=== PATIENT | female | born 1995 | race Caucasian/White ===

== ENCOUNTER 2017-06-06 09:40 | Inpatient (IN) | payer OTHER ==
[~2017-06-06] VITALS: Ht 165.1 cm; Wt 86.2 kg
[~2017-06-06 09:40] MED LIST: PREN1TAB89 PO
[2017-06-06] MEDS ORDERED: RINGERS SOLUTION,LACTATED 1,000 ML IV ONE ×2 (10:09→10:21)
[2017-06-06] MEDS ORDERED: CITRIC ACID/SODIUM CITRATE 30 ML SOLUTION UDCUP PO ONE (10:30)
[2017-06-06] MEDS ORDERED: METOCLOPRAMIDE HCL 5 MG/ML 2 ML VIAL IVP ONE (10:30)
[2017-06-06 10:31] VITALS: BP 117/67
[2017-06-06] MEDS ORDERED: FentaNYL CITRATE-PF 100 MCG/2 ML VIAL ONE (10:50)
[2017-06-06] MEDS ORDERED: MORPHINE SULFATE/PF 0.5 MG/ML 10 ML AMP ONE (10:50)
[2017-06-06] MEDS ORDERED: MIDAZOLAM HCL 2 MG/2 ML VIAL ONE (10:51)
[2017-06-06 11:09] LABS: BASOPHILS % (AUTO) 0.3 % (0.0-2.0); EOSINOPHILS % (AUTO) 1.6 % (1.0-6.0); HEMATOCRIT 30.8 % (36-46); HEMOGLOBIN 10.6 g/dL (12.0-16.0); LYMPHOCYTES # (AUTO) 1.5 K/uL (1.0-4.8); LYMPHOCYTES % (AUTO) 12.8 % (22.0-44.0); MEAN CORPUSCULAR HEMOGLOBIN 30.2 pg (26.0-34.0); MEAN CORPUSCULAR HGB CONC 34.4 G/dL (31.0-37.0); MEAN CORPUSCULAR VOLUME 88 fL (80-100); MONOCYTES # (AUTO) 0.7 K/uL (0.1-1.0); MONOCYTES % (AUTO) 6.2 % (2.0-9.0); NEUTROPHILS % (AUTO) 79.1 % (40.0-70.0); RED BLOOD CELL COUNT(AUTO) 3.51 MIL/uL (4.00-5.20); RED CELL DISTRIBUTION WIDTH 13.4 % (11.5-14.5); WHITE BLOOD COUNT (AUTO) 11.4 K/uL (4.5-11.0)
[2017-06-06 11:54] LABS: GLUCOSE,POINT OF CARE 76 MG/DL (70-110)
[2017-06-06] MEDS ORDERED: ONDANSETRON HCL 4 MG/2 ML VIAL IVP PRN ×2 (13:45)
[2017-06-06] MEDS ORDERED: DiphenhydrAMINE HCL 50 MG/ML VIAL IVP PRN ×2 (13:45)
[2017-06-06] MEDS ORDERED: FentaNYL CITRATE-PF 100 MCG/2 ML VIAL IVP PRN ×2 (13:45)
[2017-06-06] MEDS ORDERED: MORPHINE SULFATE 2 MG/ML SYRINGE IVP PRN (13:45)
[2017-06-06] MEDS ORDERED: OXYGEN THERAPY IH SCH ×2 (13:45)
[2017-06-06] MEDS ORDERED: MORPHINE SULFATE 4 MG/ML SYRINGE IVP PRN (13:45)
[2017-06-06] MEDS ORDERED: ACETAMINOPHEN/CODEINE 300-30 MG TABLET PO PRN (14:15)
[2017-06-06] MEDS: DEXTROSE 5%-0.45% SODIUM CHL 1,000 ML IV SCH ×2 (16:00→20:03)
[2017-06-06] MEDS ORDERED: DEXTROSE 5%-0.45% SODIUM CHL 1,000 ML IV ONE ×2 (16:36→23:53)
[2017-06-06] MEDS: NALBUPHINE HCL 10 MG/ML VIAL IVP SCH (18:32)
[2017-06-06] MEDS: KETOROLAC TROMETHAMINE 30 MG/ML VIAL IVP SCH (20:02)
[2017-06-06] MEDS: LANOLIN 7 GM OINTMENT TP PRN (20:07)
[2017-06-07] MEDS: NALBUPHINE HCL 10 MG/ML VIAL IVP SCH ×2 (00:05→05:35)
[2017-06-07] MEDS: DEXTROSE 5%-0.45% SODIUM CHL 1,000 ML IV SCH ×2 (00:06→04:06)
[2017-06-07] MEDS: KETOROLAC TROMETHAMINE 30 MG/ML VIAL IVP SCH ×2 (01:41→08:05)
[2017-06-07] MEDS ORDERED: KETOROLAC TROMETHAMINE 60 MG/2 ML VIAL IM ONE (01:57)
[2017-06-07] MEDS ORDERED: ONDANSETRON HCL 4 MG/2 ML VIAL IVP ONE (01:57)
[2017-06-07] MEDS ORDERED: EPHEDrine SULFATE 50 MG/ML VIAL IM ONE (01:57)
[2017-06-07] MEDS ORDERED: DEXAMETHASONE SOD PHOS 4 MG/ML VIAL IVP ONE (01:57)
[2017-06-07] MEDS ORDERED: OXYTOCIN 10 UNITS/ML VIAL IM ONE (01:57)
[2017-06-07] MEDS ORDERED: DEXTROSE 5%-0.45% SODIUM CHL 1,000 ML IV ONE (04:03)
[2017-06-07] MEDS ORDERED: IBUPROFEN 800 MG TABLET PO SCH (07:00)
[2017-06-07 09:22] LABS: BASOPHILS % (AUTO) 0.3 % (0.0-2.0); EOSINOPHILS % (AUTO) 0.2 % (1.0-6.0); HEMATOCRIT 27.4 % (36-46); HEMOGLOBIN 9.2 g/dL (12.0-16.0); LYMPHOCYTES # (AUTO) 2.1 K/uL (1.0-4.8); LYMPHOCYTES % (AUTO) 13.2 % (22.0-44.0); MEAN CORPUSCULAR HEMOGLOBIN 30.1 pg (26.0-34.0); MEAN CORPUSCULAR HGB CONC 33.8 G/dL (31.0-37.0); MEAN CORPUSCULAR VOLUME 89 fL (80-100); MONOCYTES % (AUTO) 6.6 % (2.0-9.0); NEUTROPHILS # (AUTO) 12.6 K/uL (1.8-7.7); NEUTROPHILS % (AUTO) 79.7 % (40.0-70.0); RED BLOOD CELL COUNT(AUTO) 3.07 MIL/uL (4.00-5.20); RED CELL DISTRIBUTION WIDTH 13.7 % (11.5-14.5); WHITE BLOOD COUNT (AUTO) 15.8 K/uL (4.5-11.0)
[2017-06-07] MEDS: MAGNESIUM HYDROXIDE SUSPENSION 30 ML UDCUP PO SCH ×2 (09:32→21:06)
[2017-06-07] MEDS: IBUPROFEN 800 MG TABLET PO SCH ×3 (12:30→23:57)
[2017-06-07] MEDS: ACETAMINOPHEN/CODEINE 300-30 MG TABLET PO PRN (21:13)
[2017-06-08] MEDS: IBUPROFEN 800 MG TABLET PO SCH ×4 (06:03→23:45)
[2017-06-08] MEDS: MAGNESIUM HYDROXIDE SUSPENSION 30 ML UDCUP PO SCH ×2 (09:00→21:00)
[2017-06-08] MEDS: LANOLIN 7 GM OINTMENT TP PRN (17:05)
[2017-06-08] MEDS: ACETAMINOPHEN/CODEINE 300-30 MG TABLET PO PRN (19:57)
[2017-06-09] MEDS: ACETAMINOPHEN/CODEINE 300-30 MG TABLET PO PRN (04:24)
[2017-06-09] MEDS: IBUPROFEN 800 MG TABLET PO SCH ×2 (06:14→11:59)
[2017-06-09] MEDS ORDERED: IBUP-2070 PO (12:24)
[2017-06-09] MEDS ORDERED: ACET1TAB12 PO (12:24)
[2017-06-09] MEDS ORDERED: FERR-89 PO (12:25)
[2017-06-09] MEDS ORDERED: DSS100 PO (12:25)
== END 2017-06-09 13:20 | disposition home or self-care (01) | DRG 766 ==
LOC: OBSVTOIN 09:40 → 4S 09:40
PROVIDERS: ADMIT Obstetrics & Gynecology; ATTEND Obstetrics & Gynecology
PROC: 10D00Z1 Extraction of Products of Conception, Low, Open Approach (ICD-10-PCS; principal; 2017-06-07)
PROC: 30233S1 Transfusion of Nonautologous Globulin into Peripheral Vein, Percutaneous Approach (ICD-10-PCS; 2017-06-07)
DX: O75.89 Other specified complications of labor and delivery (principal); Z37.0 Single live birth; Z3A.39 39 weeks gestation of pregnancy
CPT/HCPCS: 82962; 85461; 86850; 86900; 86901; 87081; J0690; J1100; J1200; J1885; J2250; J2274; J2300; J2405; J2590; J2765; J3010; J3490; J7120